=== PATIENT | male | born 1975 | race Caucasian/White ===

== ENCOUNTER 2019-03-07 09:17 | Inpatient (IN) | payer SELFPAY ==
[2019-03-07] VITALS (16 sets, daily range): BP systolic 134–170; BP diastolic 84–124
[~2019-03-07] VITALS: Ht 182.9 cm; Wt 99.8 kg
[2019-03-07] MEDS ORDERED: NITROGLYCERIN 2% OINT 1 GM UNIT DOSE PACKET ONE (09:25)
[2019-03-07] MEDS ORDERED: NITROGLYCERIN 2% OINT 1 GM UNIT DOSE PACKET TOP ONE (09:30)
--- NOTE | 2019-03-07 09:33 | ED Chest Pain ---
General Stated Complaint: CHEST PAIN Source: patient History of Present Illness Date Seen by Provider: March 07, 2019 Time Seen by Provider: 09:15 Initial Comments 43 yo M presenting to the ED with complaints of chest pains going to his left shoulder. He states that this feels similar to pains he has had in the past few months off and on. He also had used cocaine on Sunday night. He smokes Marijuana daily and uses tobacco daily. 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 He had a heart attack 9 years ago with stent placement in [place] at [facility]. He reports they also told him he had an additional artery that was 50% blocked at that time. He has been having pain going into his left shoulder since last night but it has been more severe since this morning. He came to the ED to be evaluated this morning because it was not getting better and he was scared he was having a heart attack again. He took se veral aspirin at home prior to coming to the ED. He can not tell me exactly how many other than it was several baby and adult aspirin. He has some nausea and did have one episode of emesis. He is anxious as well. He has some diaphoresis this am too. Allergies and Home Medications Allergies Coded Allergies: Penicillins (Verified Allergy, Unknown, 03/07/19) Home Medications Aspirin 325 Mg Tablet., 325 MG PO DAILY, (Reported) Patient Home Medication List Home Medication List Reviewed: Yes Review of Systems Review of Systems Constitutional: diaphoresis EENTM: No Symptoms Reported Respiratory: See HPI Cardiovascular: See HPI Gastrointestinal: See HPI Genitourinary: No Symptoms Reported Musculoskeletal: no symptoms reported Skin: no symptoms reported Psychiatric/Neurological: Anxiety Endocrine: No Symptoms Reported Hematologic/Lymphatic: No Symptoms Reported Past Hiowmis-Uvqifh-Rbkytw Hx Past Med/Social Hx: Reviewed Nursing Past Med/Soc Hx Past Medical History Surgeries: Yes Coronary Stent Cardiac: Yes Coronary Artery Disease, Heart Attack Physical Exam Vital Signs Vital Signs - First Documented 03/07/19 09:18 Temp 96.1 Pulse 69 Resp 13 B/P (MAP) 153/90 (111) Pulse Ox 97 O2 Delivery Room Air Capillary Refill : Height, Weight, BMI Height: '" Weight: lbs. oz. kg; BMI Method: General Appearance: WD/WN, Anxious, Other (diaphoretic) HEENT: PERRL/EOMI, Pharynx Normal Neck: Full Range of Motion, Normal Inspection, Non Tender, Supple; No Carotid Bruit, No JVD Respiratory: Chest Non Tender, Lungs Clear, Normal Breath Sounds, No Accessory Muscle Use, No Respiratory Distress, Other (tachypneic) Cardiovascular: Regular Rate, Rhythm, No JVD, No Murmur, Normal Peripheral Pulses Gastrointestinal: Normal Bowel Sounds, No Pulsatile Mass, Non Tender, Soft Rectal: Deferred Extremity: Normal Capillary Refill, Normal Inspection, Normal Range of Motion, Non Tender, No Calf Tenderness Neurologic/Psychiatric: Alert, Oriented x3, Other (anxious) Skin: Normal Color, Diaphoresis Progress/Results/Core Measures Results/Orders Lab Results Laboratory Tests Test 03/07/19 09:30 Range/Units White Blood Count 9.0 4.3-11.0 10^3/uL Red Blood Count 4.62 4.35-5.85 10^6/uL Hemoglobin 14.5 13.3-17.7 G/DL Hematocrit 43 40-54 % Mean Corpuscular Volume 93 80-99 FL Mean Corpuscular Hemoglobin 31 25-34 PG Mean Corpuscular Hemoglobin Concent 34 32-36 G/DL Red Cell Distribution Width 13.5 10.0-14.5 % Platelet Count 276 130-400 10^3/uL Mean Platelet Volume 10.3 7.4-10.4 FL Neutrophils (%) (Auto) 54 42-75 % Lymphocytes (%) (Auto) 31 12-44 % Monocytes (%) (Auto) 9 0-12 % Eosinophils (%) (Auto) 5 0-10 % Basophils (%) (Auto) 1 0-10 % Neutrophils # (Auto) 4.9 1.8-7.8 X 10^3 Lymphocytes # (Auto) 2.8 1.0-4.0 X 10^3 Monocytes # (Auto) 0.8 0.0-1.0 X 10^3 Eosinophils # (Auto) 0.4 H 0.0-0.3 10^3/uL Basophils # (Auto) 0.1 0.0-0.1 10^3/uL Prothrombin Time 12.7 12.2-14.7 SEC INR Comment 0.9 0.8-1.4 Activated Partial Thromboplast Time 27 24-35 SEC Sodium Level 140 135-145 MMOL/L Potassium Level 4.6 3.6-5.0 MMOL/L Chloride Level 102 98-107 MMOL/L Carbon Dioxide Level 22 21-32 MMOL/L Anion Gap 16 H 5-14 MMOL/L Blood Urea Nitrogen 11 7-18 MG/DL Creatinine 1.05 0.60-1.30 MG/DL Estimat Glomerular Filtration Rate > 60 BUN/Creatinine Ratio 10 Glucose Level 118 H 70-105 MG/DL Calcium Level 9.1 8.5-10.1 MG/DL Corrected Calcium 8.9 8.5-10.1 MG/DL Magnesium Level 2.0 1.8-2.4 MG/DL Total Bilirubin 0.4 0.1-1.0 MG/DL Aspartate Amino Transf (AST/SGOT) 22 5-34 U/L Alanine Aminotransferase (ALT/SGPT) 11 0-55 U/L Alkaline Phosphatase 67 40-136 U/L Troponin T 151 *H <=15 NG/L Pro-B-Type Natriuretic Peptide 613.8 H <75.0 PG/ML Total Protein 7.3 6.4-8.2 GM/DL Albumin 4.3 3.2-4.5 GM/DL My Orders Orders - ENAHSAN REYES MD Cbc With Automated Diff (03/07/19 09:16) Magnesium (03/07/19 09:16) Chest 1 View Ap/Pa Only (03/07/19 09:16) Ekg Tracing (03/07/19 09:16) Comprehensive Metabolic Panel (03/07/19 09:16) Protime With Inr (03/07/19 09:16) Partial Thromboplastin Time (03/07/19 09:16) O2 (03/07/19 09:16) Monitor-Rhythm Ecg Trace Only (03/07/19 09:16) Ed Iv/Invasive Line Start (03/07/19 09:16) Troponin T (03/07/19 09:16) Probnp Fs (03/07/19 09:16) Nitroglycerin Ointment (Nitrobid Ointme (03/07/19 09:30) Nitroglycerin Ointment (Nitrobid Ointme (03/07/19 09:25) Ns Iv 1000 Ml (Sodium Chloride 0.9%) (03/07/19 10:45) Metoprolol Succinate (Xl) Tab (Toprol Xl (03/07/19 11:00) Enoxaparin Injection (Lovenox Injection) (03/07/19 11:00) Medications Given in ED Vital Signs/I&O 03/07/19 03/07/19 09:18 09:53 Temp 96.1 Pulse 69 Resp 13 B/P (MAP) 153/90 (111) Pulse Ox 97 O2 Delivery Room Air Room Air Progress Progress Note #1: Progress Note No acute ST elevation to indicate STEMI on his ECG. Pt took aspirin prior to coming to the ED and from what he reports he at minimum took 324 mg so will not repeat that. Will check labs, CXR and give pt Ntg paste. Will hold off on beta susana for now since pt has heart rate at rest of 60 bpm and reports using cocaine recently. Progress Note #2: Progress Note pain resolved with ntg paste. CXR clear. labs show elevated troponin to 150. other labs appear stable. will check with hospitalist about admit for unstable angina vs NSTEMI and consult cardiology for admit to [facility]. Add on blood thinner and check with Cards about beta susana or blood pressure med. Initial ECG Impression Date: March 07, 2019 Initial ECG Impression Time: 09:18 Initial ECG Rate: 63 Initial ECG Rhythm: Normal Sinus Initial ECG Comparisson: No Previous ECG Available Comment Sinus rhythm with heart rate of 63 bpm. GA interval 153 ms. QT interval of 412 ms with a QT corrected interval 422 ms. He has no prior tracing for comparison. He has [address] elevation in V3 and V4. Diagnostic Imaging Diagonstic Imaging: Xray Plain Films/CT/US/NM/MRI: chest Comments NAME: ISAURO COTTRELL [facility] REC#: [id number] PT STATUS: REG ER : 1975 PHYSICIAN: AHSAN LIAO MD ADMIT DATE: 03/07/19/ER FS Signed Date of Exam:03/07/19 CHEST 1 VIEW AP/PA ONLY INDICATION: Chest pain Portable chest 9:25 AM Heart size and pulmonary vascularity are normal. Lungs are clear. There are no effusions or pneumothoraces. IMPRESSION: Negative chest Dictated by: Dictated on workstation # [id number] Dict: 03/07/19 0951 Trans: 03/07/19 1028 FRANCOIS [id number] Interpreted by: ELDER CERVANTES MD Electronically signed by: ELDER CERVANTES MD 03/07/19 1028 Departure Communication (Admissions) Time/Spoke to Admitting Phy: 10:[address] Gu at 1030 about the patient having a prior stent and cardiac history. Now presenting to the ED with chest pain going to his left shoulder and elevated Troponin T. Pain free after Nitroglycerin paste. She requested that cardiology superintendent system operation be contacted as well, so will call Dr. Perry about the patient next. Time/Spoke to Consulting Phy: 10:[address] 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 He advised giving a beta susana still and to give a Lovenox dose. Transfer to ICU in [place] and he would see in consult. Impression Primary Impression: Unstable angina Additional Impression: Cocaine abuse Disposition: ADMITTED INPATIENT Condition: Stable Admissions Decision to Admit Reason: Admit from ER (General) Decision to Admit/Date: March 07, 2019 Time/Decision to Admit Time: 10:30 Departure-Patient Inst. Referrals: NO,LOCAL PHYSICIAN (PCP/Family) Primary Care Physician AHSAN LIAO MD March 07, 2019 09:32
--- NOTE | 2019-03-07 09:56 | Diagnostic Imaging Report ---
INDICATION: Chest pain Portable chest 9:25 AM Heart size and pulmonary vascularity are normal. Lungs are clear. There are no effusions or pneumothoraces. IMPRESSION: Negative chest Dictated by: Dictated on workstation # [id number]
[2019-03-07 10:12] LABS: HEMATOCRIT 43 % (40-54); HEMOGLOBIN 14.5 G/DL (13.3-17.7); MEAN CORPUSCULAR HEMOGLOBIN 31 PG (25-34)
[2019-03-07 10:13] LABS: MEAN CORPUSCULAR HGB CONC 34 G/DL (32-36); MEAN CORPUSCULAR VOLUME 93 FL (80-99); MEAN PLATELET VOLUME 10.3 FL (7.4-10.4); PLATELET COUNT 276 10^3/uL (130-400); RED CELL DISTRIBUTION WIDTH 13.5 % (10.0-14.5)
[2019-03-07 10:15] LABS: BASOPHILS # (AUTO) 0.1 10^3/uL (0.0-0.1); BASOPHILS % (AUTO) 1 % (0-10); EOSINOPHILS # (AUTO) 0.4 10^3/uL (0.0-0.3); EOSINOPHILS % (AUTO) 5 % (0-10); LYMPHOCYTES # (AUTO) 2.8 X 10^3 (1.0-4.0); LYMPHOCYTES % (AUTO) 31 % (12-44); MONOCYTES # (AUTO) 0.8 X 10^3 (0.0-1.0); MONOCYTES % (AUTO) 9 % (0-12); NEUTROPHILS # (AUTO) 4.9 X 10^3 (1.8-7.8); NEUTROPHILS % (AUTO) 54 % (42-75)
[2019-03-07 10:16] LABS: INR 0.9 (0.8-1.4); PROTHROMBIN TIME PATIENT 12.7 SEC (12.2-14.7)
[2019-03-07 10:21] LABS: POTASSIUM 4.6 MMOL/L (3.6-5.0); SODIUM 140 MMOL/L (135-145)
[2019-03-07 10:22] LABS: ALANINE AMINOTRANSFERASE 11 U/L (0-55); ALBUMIN 4.3 GM/DL (3.2-4.5); ALKALINE PHOSPHATASE 67 U/L (40-136); BILIRUBIN,TOTAL 0.4 MG/DL (0.1-1.0); BUN/CREATININE RATIO 10; CALCIUM 9.1 MG/DL (8.5-10.1); CARBON DIOXIDE 22 MMOL/L (21-32); CHLORIDE 102 MMOL/L (98-107); CREATININE SERUM 1.05 MG/DL (0.60-1.30); GFR ESTIMATED > 60; GLUCOSE 118 MG/DL (70-105); TOTAL PROTEIN 7.3 GM/DL (6.4-8.2)
[2019-03-07] MEDS ORDERED: NS IV 1000 ML 1,000 ML IV SCH ×2 (10:45→16:03)
[2019-03-07] MEDS ORDERED: ENOXAPARIN 100 MG/1 ML (LOVENOX) SYR SC ONE (11:00)
[2019-03-07] MEDS ORDERED: meTOproloL SUCCINATE 50 MG (TOPROL XL) TAB PO SCH (11:00)
--- NOTE | 2019-03-07 11:35 | NUR ---
Bolus continued en route to [place] [facility] with EMS. Report given to TRUMAN Fenton. Care was transferred. EMS left at this time.
[2019-03-07] MEDS ORDERED: morphine INJ 4 MG/ML 1 ML (VIAL/SYRINGE) IV PRN (13:00)
[2019-03-07] MEDS ORDERED: ONDANSETRON 4 MG/2 ML (SDV) Z0FRAN IV PRN (13:00)
[2019-03-07] MEDS ORDERED: NITROGLYCERIN 0.4 MG SL TABS BTL 25'S SL PRN (13:00)
[2019-03-07] MEDS: NS IV 1000 ML 1,000 ML IV SCH ×2 (13:21→15:37)
--- NOTE | 2019-03-07 13:51 | Consultation-Cardiology ---
HPI-Cardiology Cardiology Consultation: Date of Consultation 03/07/19 Time Seen by a Provider: 13:30 Date of Admission 03-07-19 Attending Physician Alice Gu DO Admitting Physician Brittni,Local Physician Consulting Physician Simon Perry MD HPI: Chief Complaint: NSTEMI Mr. Abdullahi is a 43 year old male who has been admitted to ICU 6 from [facility]. He reports he has been having episodes of left sided chest pressure with radiation into his left shoulder "off and on" for the last 3 months. He states the episodes occur without r/t activity or emotional stress. He states they last for several minutes to off and on for several hours. He reports progressive PAYNE. He describes it as mod in intensity. He reports this morning he was in his bathroom when the left sided chest pain became worse, he reports it did radiate across his chest and into his left shoulder. He describes it as a squeezing sensation. He states he became SOB and diaphoretic. He reports it lasted for several minutes and eased, but never completely went away. He reports he continues to have some discomfort, which he describes as a feeling of a deep bruise. He denies any recent injury. He reports he does use cocaine, infrequently, with the last usage being Sunday. He reports he smokes marijuana on a daily basis. He denies any syncope or near syncope. He denies any LE swelling. He denies any vomiting or diarrhea. He denies any fever or chills. Review of Systems-Cardiology Review of Systems Constitutional: No chills, No fever Eyes: No vision change Ears/Nose/Throat: No epistaxis, No recent hearing loss Respiratory: As described under HPI Cardiovascular: As described under HPI Gastrointestinal: No constipation, No diarrhea; nausea; No vomiting Genitourinary: No dysuria, No hematuria Musculoskeletal: no symptoms reported Skin: No rash, No ulcerations Psychiatric/Neurological: No seizure, No focal weakness, No syncope Hematologic: No bleeding abnormalities WEE-Mrxfih-Nlqkoy Hx Patient Social History Alcohol Use: Denies Use Recreational Drug Use: Yes (Cocaine used sunday night, Marijuana used last night) Drug of Choice: Cocaine, maijuana Smoking Status: Current Everyday Smoker Type Used: Cigarettes 2nd Hand Smoke Exposure: Yes Recent Foreign Travel: No Recent Infectious Disease Expo: No Hospitalization with Isolation: Denies Past Medical History PMH As described under Assessment. Family Medical History Family Medical History: He reports his father had an KS at age 39. Allergies and Home Medications Allergies Coded Allergies: Penicillins (Verified Allergy, Unknown, 03/07/19) Home Medications Aspirin 325 Mg Tablet.dr, 325 MG PO DAILY, (Reported) Patient Home Medication List Home Medication List Reviewed: Yes Physical Exam-Cardiology Physical Exam Vital Signs/I&O 03/09/19 03/10/19 03/10/19 03/10/19 23:29 01:00 03:54 07:00 Temp 97.1 98.6 Pulse 84 72 89 76 Resp 16 18 B/P (MAP) 104/59 (74) 97/67 (77) Pulse Ox 99 98 O2 Delivery Room Air Room Air 03/10/19 08:00 Temp 97.9 Pulse 80 Resp 16 B/P (MAP) 117/67 (84) Pulse Ox 97 O2 Delivery Room Air 03/10/19 00:00 Intake Total 1800 ml Output Total 500 ml Balance 1300 ml Capillary Refill : Less Than 3 Seconds Constitutional: AAO x 3, well-developed, well-nourished HEENT: PERRL, hearing is well preserved, oral hygience is good; No ulceration Neck: No carotid bruit; carotid pulses are 2 + bilaterally Respiratory: No accessory muscle use, No respiratory distress; chest expansion is symmetric, chest is bilaterally symmetric, lungs clear to auscultation Cardiovascular: regular rate-rhythm; No JVD; S1 and S2 Gastrointestinal: No tender; soft, round Rectal: deferred Extremities: no lower extremity edema bilateral Neurologic/Psychiatric: grossly intact, power is 5/5 both on sides Skin: No rash, No ulcerations Data Review Labs Laboratory Tests 03/10/19 05:32: White Blood Count 10.4, Red Blood Count 4.61, Hemoglobin 14.3, Hematocrit 41, Mean Corpuscular Volume 89, Mean Corpuscular Hemoglobin 31, Mean Corpuscular Hemoglobin Concent 35, Red Cell Distribution Width 13.3, Platelet Count 272, Mean Platelet Volume 10.4, Neutrophils (%) (Auto) 52, Lymphocytes (%) (Auto) 32, Monocytes (%) (Auto) 12, Eosinophils (%) (Auto) 3, Basophils (%) (Auto) 0, Neutrophils # (Auto) 5.4, Lymphocytes # (Auto) 3.4, Monocytes # (Auto) 1.3H, Eosinophils # (Auto) 0.3, Basophils # (Auto) 0.0, Sodium Level 136, Potassium Level 4.1, Chloride Level 105, Carbon Dioxide Level 19L, Anion Gap 12, Blood Ur ea Nitrogen 17, Creatinine 1.19, Estimat Glomerular Filtration Rate > 60, BUN/Creatinine Ratio 14, Glucose Level 113H, Calcium Level 9.5, Corrected Calcium 9.4, Magnesium Level 2.6H, Total Bilirubin 0.3, Aspartate Amino Transf (AST/SGOT) 35H, Alanine Aminotransferase (ALT/SGPT) 22, Alkaline Phosphatase 73, Total Protein 7.2, Albumin 4.1 Microbiology 03/07/19 MRSA Screen - Final, Complete MRSA not isolated Radiology NAME: ISAURO ABDULLAHI [facility] REC#: [id number] PT STATUS: REG ER : 1975 PHYSICIAN: AHSAN LIAO MD ADMIT DATE: 03/07/19/ER FS Signed Date of Exam: 03/07/19 CHEST 1 VIEW AP/PA ONLY INDICATION: Chest pain Portable chest 9:25 AM Heart size and pulmonary vascularity are normal. Lungs are clear. There are no effusions or pneumothoraces. IMPRESSION: Negative chest Dictated by: Dictated on workstation # [id number] Dict: 03/07/19 0951 Trans: 03/07/19 1028 Interpreted by: ELDER CERVANTES MD Electronically signed by: ELDER CERVANTES MD 03/07/19 1028 ECG Impression ECG Initial ECG Rhythm: Normal Sinus A/P-Cardiology Assessment/Admission Diagnosis NSTEMI H/O CAD - cardiac [place] [address] Thibodeaux with stent placement - has not followed up HTN HLD Marijuana use - daily Cocaine use - last usage on Sunday (previously had been 8 months since last usage) Tobaccoism - 1 PPD - cessation advised Family h/o premature CAD - father KS at age 39 Discussion and Recomendations NSTEMI Continues to report c/o chest discomfort. Advise urgent cardiac cath. We have discussed with him the procedure, risks, benefits and potential complications of cardiac cath with possible ad hoc coronary intervention. He verbalizes understanding and provides informed consent. Continue BB and ASA Add Plavix, load with 300 mg Start statin tx Echocardiogram Request records from [facility] Advise cessation/avoidance of marijuana and cocaine and cigs Further recs will be based on his hospital course We would like to thank medical services for this consult Clinical Quality Measures DVT/VTE Risk/Contraindication: Risk Factor Score Per Nursin RFS Level Per Nursing on Admit: 2=Moderate AGUSTINA AUGUST March 07, 2019 13:51
[2019-03-07] MEDS ORDERED: ASPI325T32 PO (14:06)
--- NOTE | 2019-03-07 14:06 | NUR ---
PATIENT STATES HE DOES NOT TAKE ANY PRESCRIPTION MEDICATIONS. HE DOES TAKE ASPIRIN 325MG DAILY OTC.
[2019-03-07] MEDS ORDERED: CLOPIDOGREL 300 MG (PLAVIX) TABLET PO NR (14:15)
[2019-03-07] MEDS ORDERED: LIDOCAINE 1% INJ 20 ML 20 ML VIAL ONE (14:24)
[2019-03-07] MEDS ORDERED: HEParin (CATH LAB) 2,000 ML IV ONE (14:25)
[2019-03-07] MEDS ORDERED: MIDAZOLAM 5 MG/5 ML (VERSED) VIAL ONE (14:34)
[2019-03-07] MEDS ORDERED: fentaNYL INJECTION 100 MCG/2 ML AMP ONE ×2 (14:34→16:17)
[2019-03-07] MEDS ORDERED: NITRO DRIP 25000 MCG/D5W 250 ML IV ONE (15:15)
[2019-03-07] MEDS ORDERED: HEParin 1000 UNIT/ML (10ML VIAL) FOR BOLUS ONE (15:15)
[2019-03-07] MEDS ORDERED: EPTIFIBATIDE BOLUS 20 ML IV ONE (15:20)
[2019-03-07] MEDS ORDERED: NS IV 1000 ML 1,000 ML ONE (15:31)
[2019-03-07] MEDS ORDERED: CLOPIDOGREL 300 MG (PLAVIX) TABLET PO ONE (15:46)
[2019-03-07] MEDS ORDERED: ASPIRIN 81 MG CHEW (CHILDREN'S ASA) ONE (15:46)
[2019-03-07] MEDS ORDERED: ACETAMINOPHEN 325 MG TABLET PO PRN (16:15)
[2019-03-07] MEDS ORDERED: PATIENT MAY USE OWN MEDS, ALL PO SCH (16:15)
[2019-03-07] MEDS ORDERED: fentaNYL INJECTION 100 MCG/2 ML AMP IVP ONE (16:20)
--- NOTE | 2019-03-07 16:23 | Consultation-Cardiology ---
HPI-Cardiology Cardiology Consultation: Date of Consultation 03/07/19 Time Seen by a Provider: 14:35 Date of Admission Attending Physician Alice Gu DO Admitting Physician No,Local Physician Consulting Physician MISA NOGUERA MD, MA, FACP, FACC, [facility], CCDS Physician requesting consult: Dr Gu HPI: Chief Complaint: Reason for counsultation: chest discomfort, NSTEMI HPI Mr. Abdullahi is a 43 year old male who has been admitted to ICU 6 from [facility]. He reports he has been having episodes of left sided chest pressure with radiation into his left shoulder "off and on" for the last 3 months. He states the episodes occur without r/t activity or emotional stress. He states they last for several minutes to off and on for several hours. He reports progressive PAYNE. He describes it as mod in intensity. He reports this morning he was in his bathroom when the left sided chest pain became worse, he reports it did radiate across his chest and into his left shoulder. He describes it as a squeezing sensation. He states he became SOB and diaphoretic. He reports it lasted for several minutes and eased, but never completely went away. He reports he continues to have some discomfort, which he describes as a feeling of a deep bruise. He denies any recent injury. He reports he does use cocaine, infrequently, with the last usage being Sunday. He reports he smokes marijuana on a daily basis. He denies any syncope or near syncope. He denies any LE swelling. He denies any vomiting or diarrhea. He denies any fever or chills. Review of Systems-Cardiology Review of Systems Constitutional: No chills, No fever Eyes: No vision change Ears/Nose/Throat: No epistaxis, No recent hearing loss Respiratory: As described under HPI Cardiovascular: As described under HPI Gastrointestinal: No constipation, No diarrhea; nausea; No vomiting Genitourinary: No dysuria, No hematuria Musculoskeletal: no symptoms reported Skin: No rash, No ulcerations Psychiatric/Neurological: No seizure, No focal weakness, No syncope Hematologic: No bleeding abnormalities AWM-Ejjflv-Rropto Hx Patient Social History Alcohol Use: Denies Use Recreational Drug Use: Yes (Cocaine used sunday night, Marijuana used last night) Drug of Choice: Cocaine, maijuana Smoking Status: Current Everyday Smoker Type Used: Cigarettes 2nd Hand Smoke Exposure: Yes Recent Foreign Travel: No Recent Infectious Disease Expo: No Hospitalization with Isolation: Denies Past Medical History PMH As described under Assessment. Family Medical History Family Medical History: He reports his father had an MT at age 39. Allergies and Home Medications Allergies Coded Allergies: Penicillins (Verified Allergy, Unknown, 03/07/19) Home Medications Aspirin 325 Mg Tablet.dr, 325 MG PO DAILY, (Reported) Patient Home Medication List Home Medication List Reviewed: Yes Physical Exam-Cardiology Physical Exam Vital Signs/I&O 03/07/19 03/07/19 03/07/19 03/07/19 09:18 09:53 11:25 12:25 Temp 96.1 95.8 97.7 Pulse 69 77 85 Resp 13 13 12 B/P (MAP) 153/90 (111) 160/118 (132) 170/104 (126) Pulse Ox 97 98 99 O2 Delivery Room Air Room Air Room Air Room Air 03/07/19 03/07/19 03/07/19 03/07/19 12:30 12:45 13:00 13:10 Pulse 68 64 74 Resp 11 7 14 B/P (MAP) 157/113 (128) 152/100 (117) 152/111 (125) Pulse Ox 99 98 99 O2 Delivery Room Air Room Air Room Air Room Air 03/07/19 14:00 Pulse 60 Resp 9 B/P (MAP) 147/107 (120) Pulse Ox 98 O2 Delivery Room Air Capillary Refill : Less Than 3 Seconds Constitutional: AAO x 3, well-developed, well-nourished HEENT: PERRL, hearing is well preserved, oral hygience is good; No ulceration Neck: No carotid bruit; carotid pulses are 2 + bilaterally Respiratory: No accessory muscle use, No respiratory distress; chest expansion is symmetric, chest is bilaterally symmetric, lungs clear to auscultation Cardiovascular: regular rate-rhythm; No JVD; S1 and S2 Gastrointestinal: No tender; soft, round Rectal: deferred Extremities: no lower extremity edema bilateral Neurologic/Psychiatric: grossly intact, power is 5/5 both on sides Skin: No rash, No ulcerations Data Review Labs Laboratory Tests 03/07/19 09:30: White Blood Count 9.0, Red Blood Count 4.62, Hemoglobin 14.5, Hematocrit 43, Mean Corpuscular Volume 93, Mean Corpuscular Hemoglobin 31, Mean Corpuscular Hemoglobin Concent 34, Red Cell Distribution Width 13.5, Platelet Count 276, Mean Platelet Volume 10.3, Neutrophils (%) (Auto) 54, Lymphocytes (%) (Auto) 31, Monocytes (%) (Auto) 9, Eosinophils (%) (Auto) 5, Basophils (%) (Auto) 1, Neutr ophils # (Auto) 4.9, Lymphocytes # (Auto) 2.8, Monocytes # (Auto) 0.8, Eosinophils # (Auto) 0.4H, Basophils # (Auto) 0.1, Prothrombin Time 12.7, INR Comment 0.9, Activated Partial Thromboplast Time 27, Sodium Level 140, Potassium Level 4.6, Chloride Level 102, Carbon Dioxide Level 22, Anion Gap 16H, Blood Urea Nitrogen 11, Creatinine 1.05, Estimat Glomerular Filtration Rate > 60, BUN/Creatinine Ratio 10, Glucose Level 118H, Calcium Level 9.1, Corrected Calcium 8.9, Magnesium Level 2.0, Total Bilirubin 0.4, Aspartate Amino Transf (AST/SGOT) 22, Alanine Aminotransferase (ALT/SGPT) 11, Alkaline Phosphatase 67, Troponin T 151*H, Pro-B-Type Natriuretic Peptide 613.8H, Total Protein 7.3, Albumin 4.3 03/07/19 12:49: Myoglobin 146.1H, Troponin I 1.204*H A/P-Cardiology Assessment/Admission Diagnosis NSTEMI H/O CAD - cardiac [place] [address] Thibodeaux with stent placement - has not followed up HTN HLD Marijuana use - daily Cocaine use - last usage on Sunday (previously had been 8 months since last usage) Tobaccoism - 1 PPD - cessation advised Family h/o premature CAD - father MT at age 39 Discussion and Recomendations * Continues to report c/o chest discomfort. Advise urgent cardiac cath. We have discussed with him the procedure, risks, benefits and potential complications of cardiac cath with possible ad hoc coronary intervention. He verbalizes understanding and provides informed consent. * Continue BB and ASA * Add Plavix, load with 300 mg * Start statin tx * Echocardiogram * Request records from [facility] * Advise cessation/avoidance of marijuana and cocaine and cigs * Further recs will be based on his hospital course * We would like to thank the [facility] for this consult Clinical Quality Measures DVT/VTE Risk/Contraindication: Risk Factor Score Per Nursin RFS Level Per Nursing on Admit: 2=Moderate MISA NOGUERA MD FACP FAC CCDS March 07, 2019 16:23
--- NOTE | 2019-03-07 17:13 | CARDIAC CATHETERIZATION ---
DATE OF SERVICE: 03/07/2019 CARDIAC CATHETERIZATION INDICATIONS: The patient is a 43-year-old man, who is known to have coronary artery disease and has previously had stenting of the left anterior descending artery several years ago. He has cardiac risk factors of chronic tobacco use, noncompliance, and use of drugs that include cocaine. He has had chest discomfort for several weeks to months. This has been waxing and waning but not resolving completely. Today, chest discomfort was somewhat worse. He went to the emergency room. He was diagnosed with acute coronary syndrome. He was transferred to this hospital. Due to continuing symptoms and evidence of acute non-ST elevation myocardial infarction, we advised cardiac catheterization. Informed consent was obtained. Informed consent was also obtained for ad hoc coronary intervention, if needed. DESCRIPTION OF PROCEDURE: He was brought to the cardiac catheterization laboratory in a fasting state. Right groin was prepared and draped in the usual sterile fashion. Lidocaine 1% was used for local anesthesia. Modified Seldinger technique was used to advance a 6-Taiwanese sheath in right femoral artery. We used a 6-Taiwanese JL4 guide catheter to carry out left coronary angiography and a 5-Taiwanese JR4 catheter to carry out right coronary angiography. We carried out percutaneous intervention of the left anterior descending artery that is described below. We used a 5-Taiwanese pigtail catheter to carry out left heart catheterization, left ventricular angiography. At the end of the procedure, angiography of the right femoral artery was carried out through the sheath and Mynx was used to achieve hemostasis. He tolerated the procedure well. PERCUTANEOUS INTERVENTION TO THE LEFT ANTERIOR DESCENDING ARTERY: We used a 6-Taiwanese JL4 guide catheter to engage the left coronary artery. We advanced a BMW wire across the lesion and the tip was placed in the distal part of the vessel. We carried out balloon angioplasty with Emerge 2.5 x 20 mm balloon. This reduced the 90% stenosis in the mid left anterior descending artery, just following the origin of the first diagonal branch to approximately 60%. The balloon was removed. We advanced Xience Rand 2.75 x 18 mm stent to the lesion and this was carefully positioned and deployed at 16 atmospheres. Full stent expansion was achieved. A previously placed left anterior descending artery stent in the mid left anterior descending artery is widely patent. The stent placed today slightly overlaps the proximal portion of the old stent. HEMODYNAMICS: Left ventricular end-diastolic pressure following coronary angiography was 23 mmHg. There is no significant pressure gradient on pullback across the aortic valve. Ascending aortic pressure is 140/95 with a mean of 115 mmHg. CORONARY ANGIOGRAPHY: Left main coronary artery is free of significant disease. Left anterior descending artery had a 90% stenosis in the mid portion just past the first diagonal branch. This was successfully stented and has 0% residual stenosis following deployment of Rand 2.75 x 18 mm stent. This stent slightly overlaps an old stent, which is in the mid left anterior descending artery and is patent and free of significant stenosis. The distal mid left anterior descending artery has 40-50% stenosis. The left circumflex artery has mild to moderate diffuse disease. First diagonal branch of the left anterior descending artery has mild to moderate diffuse disease. Right coronary artery is ectatic, thrombosed, and completely occluded in its mid portion. The distal left anterior descending artery has extensive collaterals from the left coronary system, mostly the left anterior descending artery. These collaterals supplied the posterior descending branch of the right coronary artery and the posterolateral system of the right coronary artery. LEFT VENTRICULAR ANGIOGRAPHY: Left ventricular angiography was carried out in right anterior oblique projection. Global left ventricular systolic function is impaired. There is global hypokinesis. There is posterobasal and diaphragmatic akinesis. There is anterolateral hypokinesis. Left ventricular ejection fraction is approximately 15%. CONCLUSIONS: 1. Coronary artery disease consisting of 90% mid vessel stenosis of the left anterior descending which was successfully stented with Xience Rand 2.75 x 18 mm stent. An old stent in the left anterior descending artery is widely patent. The first diagonal of the left anterior descending and left circumflex artery have diffuse mild to moderate disease. Right coronary artery is ectatic, thrombosed, and completely occluded in its mid portion. The distal right coronary artery is heavily collateralized from the left coronary system. 2. Elevated left ventricular end-diastolic pressure. 3. Impairment of global left ventricular systolic function with posterobasal and diaphragmatic akinesis, anterolateral hypokinesis, and left ventricular ejection fraction approximately 15%. DISCUSSION AND RECOMMENDATIONS: Treatment is with dual-antiplatelet therapy, statin, beta blockers, KARLENE inhibitors, and diuretics. The right coronary artery appears chronically occluded, given that there is heavy collateralization of the distal right coronary artery from the left coronary system. Therefore, this artery was not intervened on. We have advised the patient to stay away from tobacco or alcohol use and to be compliant with medications. Job ID: [id number] DocumentID: [id number] Dictated Date: 03/07/2019 16:00:13 Cloth Finishing Range Back Tender Date: 03/07/2019 17:12:17 Dictated By: MISA NOGUERA MD, MA, FACP, FACC, MTDD
[2019-03-07] MEDS: SACUBITRIL/VALSARTAN 24/26 MG (ENTRESTO) TABLET PO SCH (20:24)
[2019-03-07] MEDS: ATORVASTATIN 40 MG (LIPITOR) TABLET PO SCH (20:24)
[2019-03-08] VITALS (22 sets, daily range): BP systolic 95–143; BP diastolic 56–106
[2019-03-08 03:56] LABS: BASOPHILS % (AUTO) 1 % (0-10); EOSINOPHILS # (AUTO) 0.2 10^3/uL (0.0-0.3); EOSINOPHILS % (AUTO) 3 % (0-10); HEMATOCRIT 40 % (40-54); HEMOGLOBIN 13.2 G/DL (13.3-17.7); LYMPHOCYTES # (AUTO) 3.2 X 10^3 (1.0-4.0); LYMPHOCYTES % (AUTO) 36 % (12-44); MEAN CORPUSCULAR HEMOGLOBIN 31 PG (25-34); MEAN CORPUSCULAR HGB CONC 33 G/DL (32-36); MEAN CORPUSCULAR VOLUME 93 FL (80-99); MEAN PLATELET VOLUME 10.6 FL (7.4-10.4); MONOCYTES # (AUTO) 0.9 X 10^3 (0.0-1.0); MONOCYTES % (AUTO) 11 % (0-12); NEUTROPHILS # (AUTO) 4.4 X 10^3 (1.8-7.8); NEUTROPHILS % (AUTO) 50 % (42-75); PLATELET COUNT 243 10^3/uL (130-400); RED CELL DISTRIBUTION WIDTH 13.9 % (10.0-14.5); WHITE BLOOD COUNT 8.8 10^3/uL (4.3-11.0)
[2019-03-08 04:21] LABS: ALANINE AMINOTRANSFERASE 19 U/L (0-55); ALBUMIN 3.8 GM/DL (3.2-4.5); ALKALINE PHOSPHATASE 57 U/L (40-136); BILIRUBIN,TOTAL 0.3 MG/DL (0.1-1.0); BUN/CREATININE RATIO 7; CALCIUM 8.8 MG/DL (8.5-10.1); CARBON DIOXIDE 21 MMOL/L (21-32); CHLORIDE 107 MMOL/L (98-107); CHOLESTEROL 199 MG/DL (< 200); GFR ESTIMATED > 60; GLUCOSE 100 MG/DL (70-105); HDL CHOLESTEROL 33 MG/DL (40-60); MAGNESIUM 2.1 MG/DL (1.8-2.4); POTASSIUM 3.8 MMOL/L (3.6-5.0); SODIUM 140 MMOL/L (135-145); TOTAL PROTEIN 6.4 GM/DL (6.4-8.2); TRIGLYCERIDES 129 MG/DL (<150); VLDL CHOLESTEROL 26 MG/DL (5-40)
[2019-03-08] MEDS: MAGNESIUM 1 GM/100 ML IVPB 100 ML IV SCH (04:48)
[2019-03-08] MEDS: POTASSIUM CL 10MEQ/50ML IVPB 50 ML IV SCH (04:48)
[2019-03-08] MEDS: KCL 20 MEQ TAB (K-DUR) PO SCH (04:48)
--- NOTE | 2019-03-08 05:04 | Pulmonary Consultation ---
History of Present Illness History of Present Illness Date of Consultation 03/08/19 05:03 Date of Admission Allergies and Home Medications Allergies Coded Allergies: Penicillins (Verified Allergy, Unknown, 03/07/19) Home Medications Aspirin 325 Mg Tablet.dr, 325 MG PO DAILY, (Reported) Past Xguepbh-Uyrder-Zinemb Hx Patient Social History Alcohol Use: Denies Use Recreational Drug Use: Yes (Cocaine used juvenal night, Marijuana used last night) Drug of Choice: Cocaine, maijuana Smoking Status: Current Everyday Smoker Type Used: Cigarettes 2nd Hand Smoke Exposure: Yes Recent Foreign Travel: No Contact w/Someone Who Travel: No Recent Infectious Disease Expo: No Recent Hopitalizations: No Physical Abuse: No Sexual Abuse: No Mistreated: No Fear: No Seasonal Allergies Seasonal Allergies: No Past Medical History Surgeries: Yes Cardiac, Coronary Stent Respiratory: No Cardiac: Yes (Pt was asked about hbp and stated supposed to be on meds) Heart Attack, Hypertension Neurological: No Genitourinary: No Gastrointestinal: No Musculoskeletal: No Endocrine: No HEENT: No Cancer: No Psychosocial: No Integumentary: No Blood Disorders: No Sepsis Event Evaluation Height, Weight, BMI Height: 6'0.00" Weight: 246lbs. 2.0oz. 111.705012qi; 33.4 BMI Method:Actual Exam Exam Vital Signs Date Time Temp Pulse Resp B/P (MAP) Pulse Ox O2 Delivery O2 Flow Rate FiO2 03/08/19 04:00 71 17 141/96 (111) 97 Room Air 03/08/19 04:00 97 Room Air 03/08/19 03:00 76 13 141/101 (114) 97 Room Air 03/08/19 02:00 61 18 124/85 (98) 95 Room Air 03/08/19 01:00 66 20 107/62 (77) 95 Room Air 03/08/19 01:00 85 03/08/19 00:00 72 22 104/56 (72) 95 Room Air 03/08/19 00:00 97 Room Air 03/07/19 23:00 71 16 138/88 (105) 97 Room Air 03/07/19 22:00 86 18 147/100 (116) 96 Room Air 03/07/19 21:00 82 17 134/84 (101) 96 Room Air 03/07/19 20:00 73 13 138/98 (111) 97 Room Air 03/07/19 20:00 98 Room Air 03/07/19 19:56 98.8 03/07/19 19:00 70 12 156/106 (123) 98 Room Air 03/07/19 19:00 73 03/07/19 18:30 68 11 163/115 (131) 99 Room Air 03/07/19 18:00 70 16 153/121 (132) 98 Room Air 03/07/19 17:30 72 17 152/106 (121) 98 Room Air 03/07/19 17:15 74 17 148/98 (115) 98 Room Air 03/07/19 17:00 74 140/124 (129) 98 Room Air 03/07/19 16:47 98 Room Air 03/07/19 16:45 73 15 138/93 (108) 97 Room Air 03/07/19 14:00 60 9 147/107 (120) 98 Room Air 03/07/19 13:10 Room Air 03/07/19 13:00 74 14 152/111 (125) 99 Room Air 03/07/19 12:45 64 7 152/100 (117) 98 Room Air 03/07/19 12:30 68 11 157/113 (128) 99 Room Air 03/07/19 12:25 97.7 85 12 170/104 (126) 99 Room Air 03/07/19 11:25 95.8 77 13 160/118 (132) 98 Room Air 03/07/19 09:53 Room Air 03/07/19 09:18 96.1 69 13 153/90 (111) 97 Room Air I & O 03/08/19 07:00 Intake Total 3000 ml Output Total 2600 ml Balance 400 ml Height & Weight Height: 6'0.00" Weight: 246lbs. 2.0oz. 111.087112xi; 33.4 BMI Method:Actual Capillary Refill: Less Than 3 Seconds Results Lab Laboratory Tests 03/07/19 09:30 03/08/19 03:10 Assessment/Plan Assessment/Plan NSTEMI with CAD s/p Cath with stent placement -Cardiology following Cardiomyopathy with EF of 15% HTN HLD Marijuanna/tobacco use Cocaine use - last usage on Sunday I am going to sign off pt is just awaiting Life Vest. RAVINDRA WEISS DO March 08, 2019 05:04
[2019-03-08] MEDS: SPIRONOLACTONE 25 MG (ALDACTONE) TAB PO SCH (08:38)
[2019-03-08] MEDS: SACUBITRIL/VALSARTAN 24/26 MG (ENTRESTO) TABLET PO SCH ×2 (08:38→20:54)
[2019-03-08] MEDS: CLOPIDOGREL 75 MG (PLAVIX) TABLET PO SCH (08:38)
[2019-03-08] MEDS: FUROSEMIDE 40 MG (LASIX) TAB PO SCH (08:38)
[2019-03-08] MEDS: ASPIRIN 81 MG CHEW (CHILDREN'S ASA) PO SCH (08:39)
[2019-03-08] MEDS ORDERED: meTOproloL SUCCINATE 50 MG (TOPROL XL) TAB PO SCH (09:00)
[2019-03-08] MEDS ORDERED: ASPIRIN E.C. 81 MG (ECOTRIN) TAB PO SCH (09:00)
[2019-03-08] MEDS ORDERED: lisINopril 10 MG (PRINIVIL) TABLET PO SCH (09:00)
--- NOTE | 2019-03-08 09:35 | History & Physical-Hospitalist ---
History of Present Illness HPI/Chief Complaint This is an unfortunate 43-year-old white male who is been medically noncompliant. He presents to the [place] emergency room with complaints of having intermittent chest discomfort and shoulder pain for the last 2-3 days prior to presentation. Troponin was elevated and he was transferred here for urgent cardiac catheterization. The patient had a stent placed to the LAD yesterday and was found to have a depressed ejection fraction of around 15 percent and a chronically occluded right coronary artery. The patient this morning at the time my interview is pain-free and has no specific complaints. He had been off all of his medications that he had been on for his heart disease. He had had his first myocardial infarction 9 years ago with stent placement at that time. His father also of very young age of heart disease. The patient has been smoking cigarettes marijuana and has recently had cocaine ingestion. He works at [employer]. He is to see Dr. Cherry but hasn't been some time. Source: patient Exam Limitations: no limitations Date Seen 03/08/19 Time Seen by a Provider: 08:45 Attending Physician Alice Gu DO PCP No,Local Physician Referring Physician Date of Admission March 07, 2019 at 11:16 Home Medications & Allergies Home Medications Reviewed patient Home Medication Reconciliation performed by pharmacy medication reconciliations dental service technician and/or nursing. Patients Allergies have been reviewed. Allergies Allergies Coded Allergies Penicillins (Verified Allergy, Unknown, 03/07/19) Past Nwdhxvq-Dtaqmf-Rwqkxc Hx Past Med/Social Hx: Reviewed Nursing Past Med/Soc Hx Patient Social History Marrital Status: single Employed/Student: employed Alcohol Use: Denies Use Recreational Drug Use: Yes (Cocaine used sunday night, Marijuana used last night) Drug of Choice: Cocaine, maijuana Smoking Status: Current Everyday Smoker Type Used: Cigarettes 2nd Hand Smoke Exposure: Yes Recent Foreign Travel: No Contact w/other who traveled: No Recent Hopitalizations: No Recent Infectious Disease Expo: No Seasonal Allergies Seasonal Allergies: No Past Medical History Surgeries: Coronary Stent Cardiac: Coronary Artery Disease, Heart Attack History of Blood Disorders: No Family History CAD Over 55 Years Old Review of Systems Constitutional: see HPI EENTM: no symptoms reported Respiratory: no symptoms reported Cardiovascular: chest pain Gastrointestinal: no symptoms reported Genitourinary: no symptoms reported Musculoskeletal: no symptoms reported Skin: no symptoms reported Psychiatric/Neurological: No Symptoms Reported Physical Exam Physical Exam Vital Signs Vital Signs - First Documented 03/07/19 09:18 Temp 96.1 Pulse 69 Resp 13 B/P (MAP) 153/90 (111) Pulse Ox 97 O2 Delivery Room Air Capillary Refill : Less Than 3 Seconds Height, Weight, BMI Height: 6'0.00" Weight: 246lbs. 6.0oz. 111.121851pq; 33.4 BMI Method:Actual General Appearance: No Apparent Distress, WD/WN, Other HEENT: Other (Poor dentition) Neck: Normal Inspection, Non Tender, Supple Respiratory: Chest Non Tender, Lungs Clear, Normal Breath Sounds, No Accessory Muscle Use, No Respiratory Distress Cardiovascular: Regular Rate, Rhythm, No Gallop, Normal Peripheral Pulses, Systolic Murmur Gastrointestinal: Normal Bowel Sounds, No Organomegaly, No Pulsatile Mass, Non Tender, Soft Back: Normal Inspection, No CVA Tenderness, No Vertebral Tenderness Extremity: Normal Capillary Refill, Normal Inspection, Non Tender, No Calf Tenderness Neurologic/Psychiatric: Alert, Oriented x3, No Motor/Sensory Deficits, Normal Mood/Affect, press operator carbon blocks II-XII Norm as Tested Skin: Normal Color, Warm/Dry Lymphatic: No Adenopathy Results Results/Procedures Labs Laboratory Tests 03/08/19 03:10 03/09/19 03:07 Patient resulted labs reviewed. Imaging: Reviewed Imaging Report Assessment/Plan Admission Diagnosis Non-ST segment elevation WI Congestive heart failure from ischemic cardiomyopathy Admission Status: Inpatient Order (span 2 midnights) Reason for Inpatient Admission: The patient has a depressed ejection fraction that is life-threatening and will require LifeVest before discharge. Assessment and Plan Non-ST segment elevation myocardial infarction-status post drug-eluting stent to the LAD Congestive heart failure with ejection fraction of 15 percent life vest being ordered. Tobaccoism-both marijuana and cigarettes Family history of early heart disease. Medical noncompliance Cocaine use Clinical Quality Measures DVT/VTE Risk/Contraindication: Risk Factor Score Per Nursin RFS Level Per Nursing on Admit: 2=Moderate ELINOR MONTELONGO MD March 08, 2019 09:35
[2019-03-08] MEDS: ENOXAPARIN 40 MG/0.4 ML (LOVENOX) SYR SC SCH (10:45)
--- NOTE | 2019-03-08 11:06 | Diagnostic Imaging Report ---
INDICATION: Chest pain. TECHNIQUE: Single view chest 3:35 AM. CORRELATION STUDY: 03/07/2019 FINDINGS: Heart size remains borderline enlarged. Vasculature within normal limits. Elevated right diaphragm with some right lung volume loss. No infiltrate. No appreciable effusion or pneumothorax. IMPRESSION: 1. Cardiac enlargement without failure. Slight asymmetrically elevated right diaphragm with right lung volume loss. Dictated by: Dictated on workstation # [id number]
--- NOTE | 2019-03-08 14:59 | Progress Note-Cardiology ---
Cardiology SOAP Progress Note Subjective: No cp or palp or syncope Moderate exertional shortness of breath Objective: I&O/Vital Signs 03/08/19 03/08/19 03/08/19 03/08/19 03:00 04:00 04:00 05:00 Pulse 76 71 66 Resp 13 17 12 B/P (MAP) 141/101 (114) 141/96 (111) 141/106 (118) Pulse Ox 97 97 97 98 O2 Delivery Room Air Room Air Room Air Room Air 03/08/19 03/08/19 03/08/19 03/08/19 06:00 07:00 07:00 08:00 Temp 98.5 Pulse 58 68 67 Resp 12 24 B/P (MAP) 142/100 (114) 136/82 (100) Pulse Ox 97 98 O2 Delivery Room Air Room Air 03/08/19 03/08/19 03/08/19 03/08/19 08:00 08:00 09:00 10:00 Pulse 65 73 65 Resp 12 11 17 B/P (MAP) 137/90 (106) 140/92 (108) 143/85 (104) Pulse Ox 99 98 100 96 O2 Delivery Room Air Room Air Room Air Room Air 03/08/19 03/08/19 03/08/19 03/08/19 11:00 12:00 12:00 12:51 Pulse 70 62 63 Resp 31 19 B/P (MAP) 132/80 (97) 120/81 (94) Pulse Ox 95 99 96 O2 Delivery Room Air Room Air Room Air 03/08/19 03/08/19 13:00 14:00 Pulse 80 67 Resp 19 20 B/P (MAP) 122/81 (95) 95/57 (70) Pulse Ox 99 95 O2 Delivery Room Air Room Air 03/08/19 00:00 Intake Total 800 ml Output Total 2200 ml Balance -1400 ml Weight (Pounds): 246 Weight (Ounces): 6.0 Weight (Calculated Kilograms): 111.573768 Constitutional: AAO x 3, well-developed, well-nourished Respiratory: No accessory muscle use, No respiratory distress; chest expansion is symmetric, chest is bilaterally symmetric, lungs clear to auscultation Cardiovascular: regular rate-rhythm; No JVD; S1 and S2 Gastrointestional: No tender; soft, round Extremities: no lower extremity edema bilateral Neurologic/Psychiatric: grossly intact, power is 5/5 both on sides Skin: No rash, No ulcerations Results/Procedures: Labs Laboratory Tests 03/08/19 03:10: White Blood Count 8.8, Red Blood Count 4.29L, Hemoglobin 13.2L, Hematocrit 40, Mean Corpuscular Volume 93, Mean Corpuscular Hemoglobin 31, Mean Corpuscular Hemoglobin Concent 33, Red Cell Distribution Width 13.9, Platelet Count 243, Mean Platelet Volume 10.6H, Neutrophils (%) (Auto) 50, Lymphocytes (%) (Auto) 36, Monocytes (%) (Auto) 11, Eosinophils (%) (Auto) 3, Basophils (%) (Auto) 1, Neutrophils # (Auto) 4.4, Lymphocytes # (Auto) 3.2, Monocytes # (Auto) 0.9, Eosinophils # (Auto) 0.2, Basophils # (Auto) 0.0, Sodium Level 140, Potassium Level 3.8, Chloride Level 107, Carbon Dioxide Level 21, Anion Gap 12, Blood Urea Nitrogen 8, Creatinine 1.10, Estimat Glomerular Filtration Rate > 60, BUN/ Creatinine Ratio 7, Glucose Level 100, Calcium Level 8.8, Corrected Calcium 9.0, Magnesium Level 2.1, Total Bilirubin 0.3, Aspartate Amino Transf (AST/SGOT) 71H, Alanine Aminotransferase (ALT/SGPT) 19, Alkaline Phosphatase 57, Total Protein 6.4, Albumin 3.8, Triglycerides Level 129, Cholesterol Level 199, LDL Cholesterol Direct 153H, VLDL Cholesterol 26, HDL Cholesterol 33L, Thyroid Stimulating Hormone (TSH) 1.55 Microbiology 03/07/19 MRSA Screen - Final, Complete MRSA not isolated Laboratory Tests 03/07/19 09:30 03/08/19 03:10 A/P: Assessment: NSTEMI. Card cath of 03/07/19: 90% mid LAD treated with Rand 2.75x18, previous mid LAD stent patent, RCA ectatic and thrombosed and occluded, distal RCA supplied by collaterals from LAD, elevated LVEDP, LVEF 15%, posterobasal akinesis, anterolateral hypokinesis Ischemic cardiomyopathy with LVEF 15% (see above) HTN HLD Marijuana use - daily Cocaine use - last usage on 03/04/19 (previously had been 8 months since last usage) Tobaccoism - 1 PPD - cessation advised Family h/o premature CAD - father [place] at age 39 Plan: * Complex management. I discussed his cath results with him and the interventions undertaken and future treatment plan * Treat with Entresto, Toprol XL, furosemide, spironolactone, ASA, clopidogrel * Advised immediate and complete cessation of marijuana and cocaine and cigs * Advised LifeVest * Monitor labs MISA NOGUERA MD FACP FACC CCDS March 08, 2019 14:59
[2019-03-08] MEDS: ATORVASTATIN 40 MG (LIPITOR) TABLET PO SCH (20:54)
[2019-03-09] VITALS (11 sets, daily range): BP systolic 93–116; BP diastolic 59–79
[2019-03-09 03:54] LABS: BUN/CREATININE RATIO 11; CALCIUM 9.4 MG/DL (8.5-10.1); CARBON DIOXIDE 20 MMOL/L (21-32); CHLORIDE 104 MMOL/L (98-107); CREATININE SERUM 1.13 MG/DL (0.60-1.30); GFR ESTIMATED > 60; GLUCOSE 124 MG/DL (70-105); MAGNESIUM 2.3 MG/DL (1.8-2.4); POTASSIUM 3.8 MMOL/L (3.6-5.0); SODIUM 139 MMOL/L (135-145)
[2019-03-09] MEDS: POTASSIUM CL 10MEQ/50ML IVPB 50 ML IV SCH (06:08)
[2019-03-09] MEDS: KCL 20 MEQ TAB (K-DUR) PO SCH (06:08)
[2019-03-09] MEDS: MAGNESIUM 1 GM/100 ML IVPB 100 ML IV SCH (06:08)
[2019-03-09] MEDS: FUROSEMIDE 40 MG (LASIX) TAB PO SCH (08:00)
[2019-03-09] MEDS: SACUBITRIL/VALSARTAN 24/26 MG (ENTRESTO) TABLET PO SCH ×2 (08:00→20:30)
[2019-03-09] MEDS: SPIRONOLACTONE 25 MG (ALDACTONE) TAB PO SCH (08:00)
[2019-03-09] MEDS: CLOPIDOGREL 75 MG (PLAVIX) TABLET PO SCH (08:00)
[2019-03-09] MEDS: ASPIRIN 81 MG CHEW (CHILDREN'S ASA) PO SCH (08:00)
--- NOTE | 2019-03-09 09:30 | History & Physical-Hospitalist ---
History of Present Illness HPI/Chief Complaint This is an unfortunate 43-year-old white male who is been medically noncompliant. He presents to the [place] emergency room with complaints of having intermittent chest discomfort and shoulder pain for the last 2-3 days prior to presentation. Troponin was elevated and he was transferred here for urgent cardiac catheterization. The patient had a stent placed to the LAD yesterday and was found to have a depressed ejection fraction of around 15 percent and a chronically occluded right coronary artery. The patient this morning at the time my interview is pain-free and has no specific complaints. He had been off all of his medications that he had been on for his heart disease. He had had his first myocardial infarction 9 years ago with stent placement at that time. His father also of very young age of heart disease. The patient has been smoking cigarettes marijuana and has recently had cocaine ingestion. He works at [employer]. He is to see Dr. Cherry but hasn't been some time. Date Seen 03/09/19 Time Seen by a Provider: 09:00 Attending Physician Alice Gu DO PCP No,Local Physician Referring Physician Date of Admission March 07, 2019 at 11:16 Home Medications & Allergies Home Medications Reviewed patient Home Medication Reconciliation performed by pharmacy medication reconciliations shampoo technician and/or nursing. Patients Allergies have been reviewed. Allergies Allergies Coded Allergies Penicillins (Verified Allergy, Unknown, 03/07/19) Past Dfdrhmv-Gzvcmw-Zwasxj Hx Past Med/Social Hx: Reviewed Nursing Past Med/Soc Hx Patient Social History Marrital Status: single Employed/Student: employed Alcohol Use: Denies Use Recreational Drug Use: Yes (Cocaine used juvenal night, Marijuana used last night) Drug of Choice: Cocaine, maijuana Smoking Status: Current Everyday Smoker Type Used: Cigarettes 2nd Hand Smoke Exposure: Yes Recent Foreign Travel: No Contact w/other who traveled: No Recent Hopitalizations: No Recent Infectious Disease Expo: No Seasonal Allergies Seasonal Allergies: No Past Medical History Surgeries: Coronary Stent Cardiac: Coronary Artery Disease, Heart Attack History of Blood Disorders: No Family History CAD Over 55 Years Old Review of Systems Constitutional: no symptoms reported Physical Exam Physical Exam Vital Signs Vital Signs - First Documented 03/07/19 09:18 Temp 96.1 Pulse 69 Resp 13 B/P (MAP) 153/90 (111) Pulse Ox 97 O2 Delivery Room Air Capillary Refill : Less Than 3 Seconds Height, Weight, BMI Height: 6'0.00" Weight: 240lbs. 2.0oz. 108.564470iq; 33.4 BMI Method:Actual General Appearance: No Apparent Distress Results Results/Procedures Labs Laboratory Tests 03/08/19 03:10 03/09/19 03:07 Patient resulted labs reviewed. Imaging: Reviewed Imaging Report Assessment/Plan Admission Diagnosis Non-ST segment elevation [place] Congestive heart failure-with ejection fraction of 15 percent Elevated blood sugars Coronary artery disease Illicit drug use Tobaccoism Assessment and Plan Non-ST segment elevation myocardial infarction-status post drug-eluting stent to the LAD Congestive heart failure with ejection fraction of 15 percent life vest being ordered. Tobaccoism-both marijuana and cigarettes Family history of early heart disease. Medical noncompliance Cocaine use Clinical Quality Measures DVT/VTE Risk/Contraindication: Risk Factor Score Per Nursin RFS Level Per Nursing on Admit: 2=Moderate ELINOR MONTELONGO MD March 09, 2019 09:30
--- NOTE | 2019-03-09 09:34 | Progress Note-Hospitalist ---
Subjective HPI/CC On Admission Date Seen by Provider: March 09, 2019 Time Seen by Provider: 09:00 This is an unfortunate 43-year-old white male who is been medically noncompliant. He presents to the [place] emergency room with complaints of having intermittent chest discomfort and shoulder pain for the last 2-3 days prior to presentation. Troponin was elevated and he was transferred here for urgent cardiac catheterization. The patient had a stent placed to the LAD yesterday and was found to have a depressed ejection fraction of around 15 percent and a chronically occluded right coronary artery. The patient this morning at the time my interview is pain-free and has no specific complaints. He had been off all of his medications that he had been on for his heart disease. He had had his first myocardial infarction 9 years ago with stent placement at that time. His father also of very young age of heart disease. The patient has been smoking cigarettes marijuana and has recently had cocaine ingestion. He works at [employer]. He is to see Dr. Cherry but hasn't been some time. Subjective/Events-last exam Patient has not had any further syncope chest pain or shortness of breath. He is anxious about going home and not having a life vest. He realizes he is at risk for sudden . We discussed at length that he cannot smoke or use drugs in the future. He does not have health insurance nor stable income. Review of Systems Neurological: Weakness Objective Exam Vital Signs Vital Signs Date Time Temp Pulse Resp B/P (MAP) Pulse Ox O2 Delivery O2 Flow Rate FiO2 03/09/19 07:58 97.9 97 Room Air 03/09/19 07:00 63 03/09/19 06:00 108/65 (79) 03/08/19 16:00 10 Capillary Refill : Less Than 3 Seconds General Appearance: No Apparent Distress, WD/WN, Other HEENT: Other (Poor dentition) Neck: Normal Inspection, Non Tender, Supple Respiratory: Chest Non Tender, Lungs Clear, Normal Breath Sounds, No Accessory Muscle Use, No Respiratory Distress Cardiovascular: Regular Rate, Rhythm, No Gallop, Normal Peripheral Pulses, Systolic Murmur Gastrointestinal: Normal Bowel Sounds, No Organomegaly, No Pulsatile Mass, Non Tender, Soft Rectal: Deferred Back: Normal Inspection, No CVA Tenderness, No Vertebral Tenderness Extremity: Normal Capillary Refill, Normal Inspection, Non Tender, No Calf Tenderness Neurologic/Psychiatric: Alert, Oriented x3, No Motor/Sensory Deficits, Normal Mood/Affect, monitor technician II-XII Norm as Tested Skin: Normal Color, Warm/Dry Lymphatic: No Adenopathy Results/Procedures Lab Laboratory Tests 03/09/19 03:07 Patient resulted labs reviewed. Imaging: Reviewed Imaging Report Assessment/Plan Assessment and Plan Assess & Plan/Chief Complaint Non-ST segment elevation myocardial infarction-status post drug-eluting stent to the LAD Congestive heart failure with ejection fraction of 15 percent; life vest being ordered as patient is at high risk for sudden . Patient has been started on Entresto, spironolactone, a beta susana, statin and aspirin. We'll need to monitor electrolytes and blood pressure Tobaccoism-both marijuana and cigarettes-counseled on curtailed Family history of early heart disease. Medical noncompliance Cocaine use Poor social situation will consult social work to make sure that this patient has medications he needs to avoid failure as an outpatient Clinical Quality Measures DVT/VTE Risk/Contraindication: Risk Factor Score Per Nursin RFS Level Per Nursing on Admit: 2=Moderate ELINOR MONTELONGO MD March 09, 2019 09:34
[2019-03-09] MEDS: ENOXAPARIN 40 MG/0.4 ML (LOVENOX) SYR SC SCH (10:47)
--- NOTE | 2019-03-09 12:35 | NUR ---
PT TRANSFERRED TO ROOM [facility] AMBULATORY ACCOMPANIED BY SAMUEL RN. PT PERSONAL BELONGINGS TAKEN TO ROOM WITH PT. Addendum: 03/09/19 at 1306 by KAVON LOVELL RN PT TRANSFERRED TO [facility]
--- NOTE | 2019-03-09 12:40 | Progress Note-Cardiology ---
Cardiology SOAP Progress Note Subjective: No cp or palp or syncope Malaise present Mod exertional shortness of breath, chronic Objective: I&O/Vital Signs 03/09/19 03/09/19 03/09/19 03/09/19 01:00 01:00 02:00 03:00 Pulse 66 66 71 76 B/P (MAP) 97/61 (73) 93/66 (75) 102/64 (77) O2 Delivery Room Air Room Air Room Air 03/09/19 03/09/19 03/09/19 03/09/19 04:00 04:00 05:00 06:00 Pulse 78 71 69 B/P (MAP) 101/63 (76) 114/67 (83) 108/65 (79) O2 Delivery Room Air Room Air Room Air Room Air 03/09/19 03/09/19 03/09/19 03/09/19 07:00 07:58 08:00 12:00 Temp 97.9 Pulse 63 78 B/P (MAP) 113/67 (82) Pulse Ox 97 97 O2 Delivery Room Air Room Air Room Air 03/09/19 00:00 Intake Total 1170 ml Output Total 2550 ml Balance -1380 ml Weight (Pounds): 240 Weight (Ounces): 2.0 Weight (Calculated Kilograms): 108.472045 Constitutional: AAO x 3, well-developed, well-nourished Respiratory: No accessory muscle use, No respiratory distress; chest expansion is symmetric, chest is bilaterally symmetric, lungs clear to auscultation Cardiovascular: regular rate-rhythm; No JVD; S1 and S2 Gastrointestional: No tender; soft, round Extremities: no lower extremity edema bilateral Neurologic/Psychiatric: grossly intact, power is 5/5 both on sides Skin: No rash, No ulcerations Results/Procedures: Labs Laboratory Tests 03/09/19 03:07: Sodium Level 139, Potassium Level 3.8, Chloride Level 104, Carbon Dioxide Level 20L, Anion Gap 15H, Blood Urea Nitrogen 12, Creatinine 1.13, Estimat Glomerular Filtration Rate > 60, BUN/Creatinine Ratio 11, Glucose Level 124H, Calcium Level 9.4, Magnesium Level 2.3 Microbiology 03/07/19 MRSA Screen - Final, Complete MRSA not isolated Laboratory Tests 03/08/19 03:10 03/09/19 03:07 A/P: Assessment: NSTEMI. Card cath of 03/07/19: 90% mid LAD treated with Rand 2.75x18, previous mid LAD stent patent, RCA ectatic and thrombosed and occluded, distal RCA chung pplied by collaterals from LAD, elevated LVEDP, LVEF 15%, posterobasal akinesis, anterolateral hypokinesis Ischemic cardiomyopathy with LVEF 15% (see above). Echo of 03/08/19: LVEF 25-30%, mild to mod conc LVH, apical and anteroseptal hypokinesis to akinesis HTN HLD Marijuana use - daily Cocaine use - last usage on 03/04/19 (previously had been 8 months since last usage) Tobaccoism - 1 PPD - cessation advised Family h/o premature CAD - father [place] at age 39 Plan: * Complex management. I discussed his case in detail with Dr Hughes who is trying to get a plan in place for him that will allow obtaining meds and f/u with a fam phy * Advised immediate and complete cessation of marijuana and cocaine and cigs * Advised LifeVest * Monitor labs MISA NOGUERA MD FACP FACC CCDS March 09, 2019 12:40
[2019-03-09] MEDS: ATORVASTATIN 40 MG (LIPITOR) TABLET PO SCH (20:30)
[2019-03-10 03:54] VITALS: BP 97/67
[2019-03-10 06:15] LABS: BASOPHILS % (AUTO) 0 % (0-10); EOSINOPHILS # (AUTO) 0.3 10^3/uL (0.0-0.3); EOSINOPHILS % (AUTO) 3 % (0-10); HEMATOCRIT 41 % (40-54); HEMOGLOBIN 14.3 G/DL (13.3-17.7); LYMPHOCYTES # (AUTO) 3.4 X 10^3 (1.0-4.0); LYMPHOCYTES % (AUTO) 32 % (12-44); MEAN CORPUSCULAR HEMOGLOBIN 31 PG (25-34); MEAN CORPUSCULAR HGB CONC 35 G/DL (32-36); MEAN CORPUSCULAR VOLUME 89 FL (80-99); MEAN PLATELET VOLUME 10.4 FL (7.4-10.4); MONOCYTES # (AUTO) 1.3 X 10^3 (0.0-1.0); MONOCYTES % (AUTO) 12 % (0-12); NEUTROPHILS # (AUTO) 5.4 X 10^3 (1.8-7.8); NEUTROPHILS % (AUTO) 52 % (42-75); PLATELET COUNT 272 10^3/uL (130-400); RED CELL DISTRIBUTION WIDTH 13.3 % (10.0-14.5); WHITE BLOOD COUNT 10.4 10^3/uL (4.3-11.0)
[2019-03-10 06:36] LABS: BUN/CREATININE RATIO 14; CARBON DIOXIDE 19 MMOL/L (21-32); CHLORIDE 105 MMOL/L (98-107); CREATININE SERUM 1.19 MG/DL (0.60-1.30); POTASSIUM 4.1 MMOL/L (3.6-5.0); SODIUM 136 MMOL/L (135-145)
[2019-03-10 06:37] LABS: ALANINE AMINOTRANSFERASE 22 U/L (0-55); ALBUMIN 4.1 GM/DL (3.2-4.5); ALKALINE PHOSPHATASE 73 U/L (40-136); BILIRUBIN,TOTAL 0.3 MG/DL (0.1-1.0); CALCIUM 9.5 MG/DL (8.5-10.1); GFR ESTIMATED > 60; GLUCOSE 113 MG/DL (70-105); MAGNESIUM 2.6 MG/DL (1.8-2.4); TOTAL PROTEIN 7.2 GM/DL (6.4-8.2)
[2019-03-10 08:00] VITALS: BP 117/67
[2019-03-10] MEDS: SACUBITRIL/VALSARTAN 24/26 MG (ENTRESTO) TABLET PO SCH ×2 (08:44→20:09)
[2019-03-10] MEDS: FUROSEMIDE 40 MG (LASIX) TAB PO SCH (08:44)
[2019-03-10] MEDS: SPIRONOLACTONE 25 MG (ALDACTONE) TAB PO SCH (08:45)
[2019-03-10] MEDS: ENOXAPARIN 40 MG/0.4 ML (LOVENOX) SYR SC SCH (08:45)
[2019-03-10] MEDS: ASPIRIN 81 MG CHEW (CHILDREN'S ASA) PO SCH (08:45)
[2019-03-10] MEDS: CLOPIDOGREL 75 MG (PLAVIX) TABLET PO SCH (08:45)
--- NOTE | 2019-03-10 10:06 | NUR ---
CM/SS spoke with the patient and he has information for Medicaid and for Fin. Assistance with the hospital. He does not have the supporting documentation here to complete these at this time. Anthony Osborne will be out to speak with the patient also and then to see if they proceed with self pay or with asking the [facility] [place] to cover the down payment. Patient will likely not be able to afford the down payment as he stated he has only been working at [employer] for a month and a half and had not worked before that since Sep. Will continue to follow.
--- NOTE | 2019-03-10 10:28 | Progress Note-Cardiology ---
Cardiology SOAP Progress Note Subjective: Sitting up in bed. Has been ambulating in the halls. No c/o CP, palpitations, syncope or near syncope. C/O mild dyspnea when ambulating this morning, but feels it has resolved. Objective: I&O/Vital Signs 03/10/19 03/10/19 03/10/19 03/10/19 07:00 08:00 09:00 12:00 Temp 97.9 97.6 Pulse 76 80 80 Resp 16 16 B/P (MAP) 117/67 (84) 124/60 (81) Pulse Ox 97 96 O2 Delivery Room Air Room Air Room Air 03/10/19 03/10/19 13:04 16:00 Temp 97.4 Pulse 77 71 Resp 16 B/P (MAP) 118/77 (91) Pulse Ox 98 O2 Delivery Room Air 03/10/19 00:00 Intake Total 1800 ml Output Total 500 ml Balance 1300 ml Weight (Pounds): 238 Weight (Ounces): 3.0 Weight (Calculated Kilograms): 108.946547 Side: right Groin site without hematoma: Yes Bruising: moderated bruising Constitutional: AAO x 3, well-developed, well-nourished Respiratory: No accessory muscle use, No respiratory distress; chest expansion is symmetric, chest is bilaterally symmetric, lungs clear to auscultation Cardiovascular: regular rate-rhythm; No JVD; S1 and S2 Gastrointestional: No tender; soft, round Extremities: no lower extremity edema bilateral Neurologic/Psychiatric: grossly intact, power is 5/5 both on sides Skin: No rash, No ulcerations Results/Procedures: Labs Laboratory Tests 03/10/19 05:32: White Blood Count 10.4, Red Blood Count 4.61, Hemoglobin 14.3, Hematocrit 41, Mean Corpuscular Volume 89, Mean Corpuscular Hemoglobin 31, Mean Corpuscular Hemoglobin Concent 35, Red Cell Distribution Width 13.3, Platelet Count 272, Mean Platelet Volume 10.4, Neutrophils (%) (Auto) 52, Lymphocytes (%) (Auto) 32, Monocytes (%) (Auto) 12, Eosinophils (%) (Auto) 3, Basophils (%) (Auto) 0, Neutrophils # (Auto) 5.4, Lymphocytes # (Auto) 3.4, Monocytes # (Auto) 1.3H, Eosinophils # (Auto) 0.3, Basophils # (Auto) 0.0, Sodium Level 136, Potassium Level 4.1, Chloride Level 105, Carbon Dioxide Level 19L, Anion Gap 12, Blood Urea Nitrogen 17, Creatinine 1.19, Estimat Glomerular Filtration Rate > 60, BUN/Creatinine Ratio 14, Glucose Level 113H, Calcium Level 9.5, Corrected Calcium 9.4, Magnesium Level 2.6H, Total Bilirubin 0.3, Aspartate Amino Transf (AST/SGOT) 35H, Alanine Aminotransferase (ALT/SGPT) 22, Alkaline Phosphatase 73, Total Protein 7.2, Albumin 4.1 Microbiology 03/07/19 MRSA Screen - Final, Complete MRSA not isolated A/P: Assessment: NSTEMI. Card cath of 03/07/19: 90% mid LAD treated with Rand 2.75x18, previous mid LAD stent patent, RCA ectatic and thrombosed and occluded, distal RCA supplied by collaterals from LAD, elevated LVEDP, LVEF 15%, posterobasal akinesis, anterolateral hypokinesis Ischemic cardiomyopathy with LVEF 15% (see above). Echo of 03/08/19: LVEF 25-30%, mild to mod conc LVH, apical and anteroseptal hypokinesis to akinesis HTN HLD Marijuana use - daily Cocaine use - last usage on 03/04/19 (previously had been 8 months since last usage) Tobaccoism - 1 PPD - cessation advised Family h/o premature CAD - father [place] at age 39 Plan: * Complex management. * emergency medical services coordinator consult to try to get a plan in place for him that will allow obtaining meds and f/u with a fam phy as well as Life Vest assist * Advised immediate and complete cessation of marijuana and cocaine and cigs * Advised LifeVest - he reports cost is a barrier for him d/t income * Monitor labs Physician Assessment Physician Assessment No cp or palp or syncope or shortness of breath at rest Lungs: good bilat air entry Cor: reg Ext: no c/c/e A&R * As documented in our note above that I updated (italics) and as noted below * Soc Svces consult to arrange medical f/u and means to acquire his necessary m eds * He has refused Life Vest, primarily because he feels he cannot afford it AGUSTINA AUGUST March 10, 2019 10:28 MISA NOGUERA MD FACP FACC CCDS March 10, 2019 18:41
[2019-03-10 12:00] VITALS: BP 124/60
--- NOTE | 2019-03-10 15:06 | Physician Query Clarification ---
PQ-CHF Specificity Admission Date: March 07, 2019 at 11:16 Discharge Date: The medical record reflects the following clinical scenario: History/Risk Factors: NSTEMI CAD with unstable angina Clinical Findings:Pro-BNP 613.8 on 03/07. Echo-Systolic function is reduced. Estimated EF 25-30%. Treatment: Furosemide, ASA-Angioplasty with drug eluting stent placed. Question: Can you further specify the acuity &/or type of CHF per the clinical indicators above? Please document a response in the Progress Notes or Discharge Summary. 1. Acuity: Acute, Chronic or Acute on Chronic 2. Type: Systolic, Diastolic or Systolic & Diastolic 3. Unspecified: CHF cannot be further specified regarding type or acuity 4. Other, with explanation of clinical findings 5. Clinically undetermined, no explanation for clinical findings PHYSICIAN RESPONSE Acuity: Acute Type: Systolic Other, clinical findings Ischemic Please remember a lack of response to the above will prompt a phone page by CDI/Coding staff. In responding to this query, please exercise your independent professional judgment. The purpose of this communication is to more accurately reflect the complexity of your patients condition. The fact that a question is asked does not imply that any particular answer is desired or expected. Thank you for your timely response to this clarification. Requestors name: Alix Wright [facility] Phone # ext [phone] or [phone] THIS PHYSICIAN QUERY FORM IS A PERMANENT PART OF THE MEDICAL RECORD ALIX WRIGHT March 10, 2019 15:06 ELINOR MONTELONGO MD March 12, 2019 10:51
--- NOTE | 2019-03-10 15:08 | NUR ---
Initial visit: pt shared that he is not part of a ruth community at this times, and believes that God is with him. States he believes his parents are watching over him from heaven because "I should be after having three heart attacks."
[2019-03-10 16:00] VITALS: BP 118/77
--- NOTE | 2019-03-10 16:13 | Progress Note-Hospitalist ---
Progress Note Progress Notes/Assess & Plan Date Seen 03/10/19 Time Seen by Provider: 16:10 Assessment & Plan The patient is a 43-year-old white male. He reports that he had his first myocardial infarction at age 34. He has a bad family history. He had a extended period of chest discomfort prior to coming to the hospital. He states that it was different than his previous experience and he did not think it was his heart. Last ejection fraction had been 25-30 percent. He underwent a coronary angiogram and stenting. His ejection fraction was estimated at 15 percent. He is to receive a defibrillator vest tomorrow and then to be discharged. Physical exam: He is a pleasant fellow. Lungs are clear to auscultation. CV is regular without murmur. Abdomen is somewhat obese. Extremities show no pedal edema. Impression: 1.arteriosclerotic heart disease. 2.ischemic cardiomyopathy with ejection fraction estimated at 15 percent. 3.medication noncompliance. Plan: Await defibrillator vest KAYODE TORRES MD March 10, 2019 16:13
[2019-03-10 20:00] VITALS: BP 129/81
[2019-03-10] MEDS: ATORVASTATIN 40 MG (LIPITOR) TABLET PO SCH (20:09)
[2019-03-11] VITALS: BP 125/62
[2019-03-11 04:58] VITALS: BP 98/56
[2019-03-11 05:38] LABS: HEMOGLOBIN 14.2 G/DL (13.3-17.7); MEAN PLATELET VOLUME 10.5 FL (7.4-10.4); RED CELL DISTRIBUTION WIDTH 13.5 % (10.0-14.5); WHITE BLOOD COUNT 9.6 10^3/uL (4.3-11.0)
[2019-03-11 06:07] LABS: BUN/CREATININE RATIO 15; CALCIUM 9.6 MG/DL (8.5-10.1); CARBON DIOXIDE 20 MMOL/L (21-32); CHLORIDE 104 MMOL/L (98-107); CREATININE SERUM 1.11 MG/DL (0.60-1.30); GFR ESTIMATED > 60; GLUCOSE 118 MG/DL (70-105); MAGNESIUM 2.3 MG/DL (1.8-2.4); POTASSIUM 4.2 MMOL/L (3.6-5.0); SODIUM 138 MMOL/L (135-145)
[2019-03-11 08:00] VITALS: BP_SYST 121; BP_SYST 98; BP_DIAS 56; BP_DIAS 80
[2019-03-11] MEDS: FUROSEMIDE 40 MG (LASIX) TAB PO SCH (08:39)
[2019-03-11] MEDS: ASPIRIN 81 MG CHEW (CHILDREN'S ASA) PO SCH (08:39)
[2019-03-11] MEDS: CLOPIDOGREL 75 MG (PLAVIX) TABLET PO SCH (08:39)
[2019-03-11] MEDS: SPIRONOLACTONE 25 MG (ALDACTONE) TAB PO SCH (08:39)
[2019-03-11] MEDS: SACUBITRIL/VALSARTAN 24/26 MG (ENTRESTO) TABLET PO SCH (08:39)
[2019-03-11] MEDS: ENOXAPARIN 40 MG/0.4 ML (LOVENOX) SYR SC SCH (08:40)
[2019-03-11] MEDS ORDERED: SPIR25TA5 PO (11:08)
[2019-03-11] MEDS ORDERED: FURO40TA4 PO (11:08)
[2019-03-11] MEDS ORDERED: METO-387 PO (11:08)
[2019-03-11] MEDS ORDERED: CLOP75TA28 PO (11:08)
[2019-03-11] MEDS ORDERED: ASPI-999 PO (11:08)
[2019-03-11] MEDS ORDERED: ATOR40TA PO (11:08)
[2019-03-11] MEDS ORDERED: SACU1TAB PO (11:08)
--- NOTE | 2019-03-11 11:38 | Progress Note-Cardiology ---
Cardiology SOAP Progress Note Subjective: In bed. No c/o CP, palpitations, dyspnea, syncope or near syncope. Voices concern with returning to work and activity. Objective: I&O/Vital Signs 03/11/19 03/11/19 03/11/19 03/11/19 04:58 07:00 08:00 09:00 Temp 97.6 97.6 Pulse 78 83 83 Resp 18 18 B/P (MAP) 98/56 (70) 121/80 (94) Pulse Ox 99 100 O2 Delivery Room Air Room Air Room Air 03/11/19 03/11/19 12:00 13:14 Temp 97.5 Pulse 76 81 Resp 18 B/P (MAP) 115/70 (85) Pulse Ox 97 O2 Delivery Room Air 03/11/19 00:00 Intake Total 2720 ml Output Total 541 ml Balance 2179 ml Weight (Pounds): 220 Weight (Ounces): 1.0 Weight (Calculated Kilograms): 99.045406 Side: right Groin site without hematoma: Yes Bruising: moderated bruising Constitutional: AAO x 3, well-developed, well-nourished Respiratory: No accessory muscle use, No respiratory distress; chest expansion is symmetric, chest is bilaterally symmetric, lungs clear to auscultation Cardiovascular: regular rate-rhythm; No JVD; S1 and S2 Gastrointestional: No tender; soft, round Extremities: no lower extremity edema bilateral Neurologic/Psychiatric: grossly intact, power is 5/5 both on sides Skin: No rash, No ulcerations Results/Procedures: Labs Laboratory Tests 03/11/19 04:50: White Blood Count 9.6, Red Blood Count 4.64, Hemoglobin 14.2, Hematocrit 41, Mean Corpuscular Volume 89, Mean Corpuscular Hemoglobin 31, Mean Corpuscular Hemoglobin Concent 35, Red Cell Distribution Width 13.5, Platelet Count 285, Mean Platelet Volume 10.5H, Sodium Level 138, Potassium Level 4.2, Chloride Level 104, Carbon Dioxide Level 20L, Anion Gap 14, Blood Urea Nitrogen 17, Creatinine 1.11, Estimat Glomerular Filtration Rate > 60, BUN/Creatinine Ratio 15, Glucose Level 118H, Calcium Level 9.6, Magnesium Level 2.3 Microbiology 03/07/19 MRSA Screen - Final, Complete MRSA not isolated A/P: Assessment: NSTEMI. Card cath of 03/07/19: 90% mid LAD treated with Rand 2.75x18, previous mid LAD stent patent, RCA ectatic and thrombosed and occluded, distal RCA supplied by collaterals from LAD, elevated LVEDP, LVEF 15%, posterobasal akinesis, anterolateral hypokinesis Ischemic cardiomyopathy with LVEF 15% (see above). Echo of 03/08/19: LVEF 25-30%, mild to mod conc LVH, apical and anteroseptal hypokinesis to akinesis HTN HLD Marijuana use - daily Cocaine use - last usage on 03/04/19 (previously had been 8 months since last usage) Tobaccoism - 1 PPD - cessation advised Family h/o premature CAD - father [place] at age 39 Plan: * Complex management. * client services assistant assisting to try to get a plan in place for him that will allow obtaining meds and f/u with a fam phy as well as Life Vest assist * Advised immediate and complete cessation of marijuana and cocaine and cigs * Advised LifeVest - he reports cost is a barrier for him d/t income * Advise out pt f/u in a week * Discussed importance * Cardiac rehab as an out pt Physician Assessment Physician Assessment Does not report cp or palp or syncope. Wishes to go home Cor: reg Lungs: good bilat air entry Ext: no c/c/e A&R * As documented in our note above that I updated (italics) and as noted below * We had a detailed discussion regarding the importance of compliance with risk factor mod and his current regimen * Outpt f/u is advised * Ok for d/c when arrangements made for meds and defib vest that [facility] is working on AGUSTINA AUGUST [employer] METER REPAIR SUPERVISOR March 11, 2019 11:38 MISA NOGUERA MD FACP FAC CCDS March 11, 2019 14:25
[2019-03-11 12:00] VITALS: BP 115/70
--- NOTE | 2019-03-11 14:56 | Progress Note-Hospitalist ---
Progress Note Progress Notes/Assess & Plan Date Seen 03/11/19 Time Seen by Provider: 14:54 Assessment & Plan The patient's defibrillator vest arrived. It has been fitted and placed and he has been instructed. He is therefore ready for discharge. He has no other complaints. Physical exam: He is alert and pleasant. Lungs are clear to auscultation. CV is regular without murmur. Abdomen is soft. There are no masses. Extremities show no pedal edema. Impression: Arteriosclerotic heart disease. 2.ischemic cardiomyopathy ejection fraction approximately 15 percent. 3.ongoing history of drug abuse. Plan: Discharge. See discharge sequence for medications and routines. KAYODE TORRES MD March 11, 2019 14:56
--- NOTE | 2019-03-11 15:00 | Discharge Inst-Simple/Standard ---
Discharge Inst-Standard Patient Instructions/Follow Up Plan of Care/Instructions/FU: Medications as listed on the discharge sequence. 2.activities as tolerated. 3.appointment with cardiology as scheduled. Activity as Tolerated: Yes Discharge Diet: No Restrictions Return to The Hospital For: Chest pain or increasing shortness of breath. Planned Outpatient Orders/Ref. Pneu Vac Indicated: Yes KAYODE TORRES MD March 11, 2019 15:00
--- NOTE | 2019-03-11 15:46 | NUR ---
CM/SS spoke with patient again for discharge planning. Patient has several new medications to fill, Dr Jack's office will supply him with samples for entresto. The rest of his medications will be around $60 at [facility]. He stated that he will be able to cover the cost of his medications. He understands the importance of his medications and follow up with . Patient will be getting established with [facility].
[2019-03-11 16:30] VITALS: BP 115/70
== END 2019-03-11 16:30 | disposition home or self-care (01) | DRG 246 ==
LOC: ER FS 09:18 → ICU 11:16 → 4TH 03-09 12:35
PROVIDERS: ADMIT Internal Medicine; ATTEND Internal Medicine
PROC: 027034Z Dilation of Coronary Artery, One Artery with Drug-eluting Intraluminal Device, Percutaneous Approach (ICD-10-PCS; principal; 2019-03-07)
PROC: 4A023N7 Measurement of Cardiac Sampling and Pressure, Left Heart, Percutaneous Approach (ICD-10-PCS; 2019-03-07)
PROC: B2111ZZ Fluoroscopy of Multiple Coronary Arteries using Low Osmolar Contrast (ICD-10-PCS; 2019-03-07)
PROC: B2151ZZ Fluoroscopy of Left Heart using Low Osmolar Contrast (ICD-10-PCS; 2019-03-07)
DX: I21.4 Non-ST elevation (NSTEMI) myocardial infarction (principal); I25.110 Atherosclerotic heart disease of native coronary artery with unstable angina pectoris; I25.5 Ischemic cardiomyopathy; I11.0 Hypertensive heart disease with heart failure; I50.21 Acute systolic (congestive) heart failure; I25.82 Chronic total occlusion of coronary artery; F17.210 Nicotine dependence, cigarettes, uncomplicated; E78.5 Hyperlipidemia, unspecified; F14.10 Cocaine abuse, uncomplicated; F12.10 Cannabis abuse, uncomplicated; I25.2 Old myocardial infarction; Z95.5 Presence of coronary angioplasty implant and graft; Z91.19 Patient's noncompliance with other medical treatment and regimen; Z82.49 Family history of ischemic heart disease and other diseases of the circulatory system
CPT/HCPCS: 36415; 71045; 80048; 80053; 80061; 83735; 83874; 83880; 84443; 84484; 85025; 85027; 85610; 85730; 87081; 93005; 93041; 93306; 93458; 96372

== ENCOUNTER → 2019-03-21 | Outpatient (CLI) | payer SELFPAY ==
[~2019-03-21] MED LIST: ASPI-999 PO; ASPI325T32 PO; ATOR40TA PO; CLOP75TA28 PO; FURO40TA4 PO; METO-387 PO; SACU1TAB PO; SPIR25TA5 PO
[2019-03-21 08:46] LABS: HEMATOCRIT 40 % (40-54); HEMOGLOBIN 13.3 G/DL (13.3-17.7); MEAN CORPUSCULAR HEMOGLOBIN 31 PG (25-34); MEAN CORPUSCULAR HGB CONC 33 G/DL (32-36); MEAN CORPUSCULAR VOLUME 94 FL (80-99); MEAN PLATELET VOLUME 9.5 FL (7.4-10.4); PLATELET COUNT 368 10^3/uL (130-400); RED CELL DISTRIBUTION WIDTH 13.5 % (10.0-14.5); WHITE BLOOD COUNT 8.2 10^3/uL (4.3-11.0)
[2019-03-21 08:47] LABS: BASOPHILS # (AUTO) 0.1 10^3/uL (0.0-0.1); BASOPHILS % (AUTO) 1 % (0-10); EOSINOPHILS # (AUTO) 0.4 10^3/uL (0.0-0.3); EOSINOPHILS % (AUTO) 4 % (0-10); LYMPHOCYTES # (AUTO) 2.2 X 10^3 (1.0-4.0); LYMPHOCYTES % (AUTO) 27 % (12-44); MONOCYTES # (AUTO) 0.7 X 10^3 (0.0-1.0); MONOCYTES % (AUTO) 8 % (0-12); NEUTROPHILS # (AUTO) 4.9 X 10^3 (1.8-7.8); NEUTROPHILS % (AUTO) 60 % (42-75)
[2019-03-21 09:24] LABS: BUN/CREATININE RATIO 15; CALCIUM 9.1 MG/DL (8.5-10.1); CARBON DIOXIDE 22 MMOL/L (21-32); CHLORIDE 102 MMOL/L (98-107); CREATININE SERUM 0.97 MG/DL (0.60-1.30); GFR ESTIMATED > 60; GLUCOSE 105 MG/DL (70-105); MAGNESIUM 2.3 MG/DL (1.8-2.4); POTASSIUM 4.8 MMOL/L (3.6-5.0); SODIUM 137 MMOL/L (135-145)
[2019-03-21 09:25] LABS: ALANINE AMINOTRANSFERASE 15 U/L (0-55); ALBUMIN 4.3 GM/DL (3.2-4.5); ALKALINE PHOSPHATASE 72 U/L (40-136); BILIRUBIN,TOTAL 0.4 MG/DL (0.1-1.0); TOTAL PROTEIN 7.1 GM/DL (6.4-8.2)
[2019-03-21 17:41] LABS: CHOLESTEROL 145 MG/DL (< 200); HDL CHOLESTEROL 44 MG/DL (40-60); TRIGLYCERIDES 77 MG/DL (<150); VLDL CHOLESTEROL 15 MG/DL (5-40)
== END ==
LOC: LAB FS 08:16
PROVIDERS: ATTEND Internal Medicine Cardiovascular Disease
DX: I50.23 Acute on chronic systolic (congestive) heart failure (principal); I25.5 Ischemic cardiomyopathy; I25.10 Atherosclerotic heart disease of native coronary artery without angina pectoris
CPT/HCPCS: 36415; 80053; 80061; 83735; 83880; 84443; 85025